=== PATIENT | male | born 1995 | race Caucasian/White ===

== ENCOUNTER → 2023-05-31 | Outpatient (REF) | payer OTHER ==
[2023-05-31 14:27] LABS: SEMEN APPEARANCE OPAQUE (OPAQUE); SEMEN VISCOSITY LIQUID (LIQUID); SEMEN VOLUME 2.5 ml (2.0-5.0); SEMEN pH 8.5 (7.0-8.0); WBC CONCENTRATION <=1 M/ml (<=1 M/ml)
== END ==
LOC: M LAB REF 13:16
PROVIDERS: ATTEND Internal Medicine
DX: Z31.41 Encounter for fertility testing (principal)

== ENCOUNTER 2024-09-23 19:04 | Emergency (ER) | payer OTHER ==
[2024-09-23] MEDS: DERMABOND TOPICAL SKIN ADHESIVE TOP ONE (20:58)
[2024-09-23 21:02] VITALS: BP 116/61; TEMP 97.2; O2SAT 99
== END 2024-09-23 21:14 | disposition home or self-care (01) ==
LOC: M ED 19:04
DX: S61.210A Laceration without foreign body of right index finger without damage to nail, initial encounter (principal); W26.0XXA Contact with knife, initial encounter; Y92.009 Unspecified place in unspecified non-institutional (private) residence as the place of occurrence of the external cause; Y93.89 Activity, other specified; Y99.9 Unspecified external cause status